=== PATIENT | male | born 1970 | race Two or more races ===

== ENCOUNTER 2021-01-05 09:13 | Outpatient (CLI) | payer OTHER ==
[~2021-01-05 09:13] MED LIST: DOXYCYCLINE MO100 MG PO; FLAGYL500MG PO; HYZAAR 100-121 UDTAB; METFORMIN HCL500 MG; ULTRACET PO
== END 2021-01-05 09:22 | disposition home or self-care (01) ==
LOC: MRI 09:13
DX: M17.32 Unilateral post-traumatic osteoarthritis, left knee (principal)
CPT/HCPCS: 73721

== ENCOUNTER 2021-03-24 15:21 | Outpatient (CLI) | payer OTHER | END 2021-03-24 15:32 | disposition home or self-care (01) | LOC: MRI 15:21 | DX: M17.12 Unilateral primary osteoarthritis, left knee (principal); M17.32 Unilateral post-traumatic osteoarthritis, left knee | CPT/HCPCS: 73718 ==

== ENCOUNTER 2022-05-03 13:50 | Outpatient (CLI) | payer OTHER | END 2022-05-03 14:01 | disposition home or self-care (01) | LOC: RAD 13:50 | PROVIDERS: ATTEND General Practice | DX: R07.9 Chest pain, unspecified (principal) ==

== ENCOUNTER 2023-07-11 12:14 | Outpatient (CLI) | payer OTHER | END 2023-07-11 12:27 | disposition home or self-care (01) | LOC: MRI 12:14 | PROVIDERS: ATTEND Orthopaedic Surgery Hand Surgery | DX: R22.32 Localized swelling, mass and lump, left upper limb (principal) | CPT/HCPCS: 73221 ==

== ENCOUNTER 2023-10-23 15:05 | Outpatient (CLI) | payer OTHER ==
[2023-10-23 16:27] LABS: CREATININE SERUM 0.81 mg/dL (0.70-1.30)
== END 2023-10-23 15:06 | disposition home or self-care (01) ==
LOC: LAB 15:05
PROVIDERS: ATTEND Radiology Diagnostic Radiology
DX: R10.30 Lower abdominal pain, unspecified (principal)

== ENCOUNTER 2023-10-25 08:52 | Outpatient (CLI) | payer OTHER | END 2023-10-25 13:05 | disposition home or self-care (01) | LOC: MRI 08:52 | DX: M54.50 Low back pain, unspecified (principal) | CPT/HCPCS: 72158 ==